=== PATIENT | female | born 1975 | race Caucasian/White ===

== ENCOUNTER → 2016-06-25 | Outpatient (CLI) | payer OTHER ==
[~2016-06-25] MED LIST: GADOBUTROL 10 ML VIAL IVP ONE
--- NOTE | 2016-06-25 16:02 | MR ---
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 Comparison: MRI March 20162012. Technique: T1-weighted images were acquired axially and sagittally from the foramen magnum to the ve rtex. Axial fast inversion-recovery, fast T2-weighted, and diffusion-weighted axial images were obta ined without contrast. Postcontrast axial ,coronal and sagittal T1-weighted images with the uneventfu l intravenous administration of 7.5 mL Gadavist contrast. Additional axial 3D FIESTA series through the brainstem. Findings: In the posterior right side of the soco there is a hemorrhagic nonenhancing lesion with pe ripheral hemosiderin rim and increasing hyperintense T1, T2 and FLAIR signal centrally since previous study but demonstrating no significant change in size measuring 13 x 11 mm with mass effect on the v entral right side of the soco. No evidence of enhancement. Surrounding edema persists. No additional lesion is noted. Postcontrast images demonstrate no intraaxial enhancing lesions. Mild mucosal thickening posterior aspect of left maxillary sinus. The ventricles, cisterns, and sulci are normal without atrophy, hydrocephalus, midline shift, herniat ion, or epidural/subdural hematomas. No intracranial hemorrhage or masses. Diffusion-weighted images demonstrate no acute infarct. Cerebellar tonsils are in normal position. Pituitary gland is normal in size. Normal signal flow voids in the superior sagittal sinus, basilar artery, and bilateral interna l carotid arteries indicating patency. Impression: 1. Posterior right-sided soco nonenhancing hemorrhagic lesion with peripheral hemosiderin rim most li vira representing a benign cavernous malformation, with a small amount of surrounding perilesional ed adrien and mass effect on the fourth ventricle. 2. Mild left maxillary sinusitis. 3. No acute infarct, hydrocephalus, herniation, or enhancing masses.
== END ==
LOC: FIMAGING 10:20
PROVIDERS: ATTEND Neurological Surgery
DX: Q28.3 Other malformations of cerebral vessels (principal); J01.00 Acute maxillary sinusitis, unspecified
CPT/HCPCS: A9585

== ENCOUNTER → 2016-11-05 | Outpatient (CLI) | payer OTHER | LOC: FIMAGING 10:04 | DX: Q28.3 Other malformations of cerebral vessels (principal); G93.89 Other specified disorders of brain | CPT/HCPCS: A9585 ==

== ENCOUNTER → 2017-09-05 | Outpatient (CLI) | payer OTHER | LOC: FIMAGING 12:35 | PROVIDERS: ATTEND Nurse Practitioner Women's Health | DX: N64.4 Mastodynia (principal) ==